=== PATIENT | female | born 1995 | race American Indian/Alaskan Native ===

== ENCOUNTER 2016-08-20 08:11 | Emergency (ER) | payer SELFPAY ==
[2016-08-20 08:20] VITALS: BP 111/66
[2016-08-20 08:37] LABS: Basophils % (Auto) 0.4 % (0.0-1.8); Eosinophils % (Auto) 1.1 % (0.0-4.3); Hematocrit 39.2 % (30.3-42.9); Mean Corpuscular HGB Conc 33 % (30-34); Mean Corpuscular Hemoglobin 28 pg (28-32); Mean Corpuscular Volume 84 fl (79-97); Platelet Count 172 K/mm3 (140-440); Red Blood Count 4.64 M/mm3 (3.65-5.03); Red Cell Distribution Width 13.8 % (13.2-15.2); White Blood Count 4.9 K/mm3 (4.5-11.0)
[2016-08-20 08:52] LABS: Anion Gap 16 mmol/L; BUN/Creatinine Ratio 11.42; Blood Urea Nitrogen 8 mg/dL (7-17); Calcium 8.6 mg/dL (8.4-10.2); Carbon Dioxide 22 mmol/L (22-30); Chloride 105.1 mmol/L (98-107); Glucose 91 mg/dL (65-100); Potassium 4.5 mmol/L (3.6-5.0); Sodium 139 mmol/L (137-145)
[2016-08-20 08:52] LABS: Bilirubin,Urine NEG (Negative); Blood,Urine NEG (Negative); Ketones,Urine NEG (Negative); Leukocyte Esterase,Urine NEG (Negative); Mucus,Urine 2+ /HPF; Nitrite,Urine NEG (Negative); Protein,Urine <15 mg/dL mg/dL (Negative); Urobilinogen,Urine < 2.0 mg/dL (<2.0)
--- NOTE | 2016-08-20 10:12 | Emergency Department Report ---
ED N/V/D HPI - General Chief complaint: Nausea/Vomiting/Diarrhea Stated complaint: NAUSEA Time Seen by Provider: 08/20/16 10:11 Source: patient Mode of arrival: Ambulatory Limitations: No Limitations - Related Data Previous Rx's Medication Instructions Recorded Last Taken Type Promethazine HCl [Promethazine TAB] 12.5 mg PO [id number] PRN #14 tab 08/20/16 Unknown Rx Allergies Allergy/AdvReac Type Severity Reaction Status Date / Time No Known Allergies Allergy Verified 08/20/16 08:20 ED Review of Systems ROS: Stated complaint: NAUSEA Other details as noted in HPI ED Past Medical Hx - Past Medical History Previous Medical History?: No Hx Hypertension: No Hx Congestive Heart Failure: No Hx Diabetes: No Hx Deep Vein Thrombosis: No Hx Renal Disease: No Hx Sickle Cell Disease: No Hx Seizures: No Hx Asthma: No Hx COPD: No Hx HIV: No - Surgical History Past Surgical History?: No - Social History Smoking Status: Never Smoker Substance Use Type: None - Medications Home Medications: Home Medications Medication Instructions Recorded Confirmed Last Taken Type Promethazine HCl [Promethazine TAB] 12.5 mg PO [id number] PRN #14 tab 08/20/16 Unknown Rx ED Physical Exam - General Limitations: No Limitations - Eye Eye exam: Present: normal appearance Pupils: Present: normal accommodation - ENT ENT exam: Present: normal exam - Neck Neck exam: Present: normal inspection - Respiratory Respiratory exam: Present: normal lung sounds bilaterally - Cardiovascular Cardiovascular Exam: Present: regular rate, normal rhythm - GI/Abdominal GI/Abdominal exam: Present: soft - External exam: Present: other (patient refused) ED Course Vital Signs 08/20/16 08:17 Temperature 98.3 F Pulse Rate 75 Respiratory 15 Rate Blood Pressure 111/66 O2 Sat by Pulse 100 Oximetry - Reevaluation(s) Reevaluation #1: 08/20/16 10:39 by m.d at 10:39, patient without distress wants to go home. ED Medical Decision Making - Lab Data Result diagrams: 08/20/16 08:23 08/20/16 08:23 Critical care attestation.: If time is entered above; I have spent that time in minutes in the direct care of this critically ill patient, excluding procedure time. ED Disposition Clinical Impression: Vomiting affecting Disposition: DC-01 TO HOME OR SELFCARE Is pt being admited?: No Does the pt Need Aspirin: No Condition: Stable Prescriptions: Promethazine HCl [Promethazine TAB] 12.5 mg PO [id number] PRN #14 tab PRN Reason: Nausea Referrals: PRIMARY CAREMD [Primary Care Provider] - 3-5 Days ALEJANDRO REYNA MD [Referring] - 3-5 Days Forms: Work/School Release Form(ED) Time of Disposition: 10:48
== END 2016-08-20 11:02 | disposition home or self-care (01) ==
LOC: ED 08:11
DX: O21.9 Vomiting of pregnancy, unspecified (principal); Z3A.00 Weeks of gestation of pregnancy not specified
CPT/HCPCS: 36415; 80048; 81001; 84703; 85025; 99283

== ENCOUNTER 2017-03-31 16:37 | Outpatient (CLI) | payer OTHER ==
[2017-03-31 17:38] VITALS: BP 100/58
[2017-03-31] MEDS ORDERED: LACTATED RINGERS 500 ML IV ONE (18:00)
[2017-03-31 18:58] LABS: Amorphous Crystals,Urine Few; Bacteria,Urine 1+ /HPF (Negative); Bilirubin,Urine NEG (Negative); Blood,Urine NEG (Negative); Color,Urine Yellow (Yellow); Mucus,Urine FEW /HPF; Nitrite,Urine NEG (Negative); Protein,Urine <15 mg/dL mg/dL (Negative); Urobilinogen,Urine < 2.0 mg/dL (<2.0)
== END 2017-03-31 19:45 | disposition home or self-care (01) ==
LOC: TRG 16:37 → LD 17:29 → TRG 19:45
PROVIDERS: ATTEND Obstetrics & Gynecology
DX: O47.03 False labor before 37 completed weeks of gestation, third trimester (principal); Z3A.35 35 weeks gestation of pregnancy
CPT/HCPCS: 59025; 81001

== ENCOUNTER 2018-04-06 10:15 | Emergency (ER) | payer OTHER ==
[2018-04-06] MEDS ORDERED: IBUPROFEN PO ONE (13:54)
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
--- NOTE | 2018-04-06 15:19 | XRay Report ---
RIGHT SHOULDER, 3 VIEWS: HISTORY: right shoulder pain. Normal bone mineralization. No acute osseous injury or joint pathology is detected. The soft tissues are unremarkable. IMPRESSION: Right shoulder within normal limits.
[2018-04-06 15:43] VITALS: BP 105/66
== END 2018-04-06 15:41 | disposition home or self-care (01) ==
LOC: ED 10:15
DX: S46.911A Strain of unspecified muscle, fascia and tendon at shoulder and upper arm level, right arm, initial encounter (principal); Z79.899 Other long term (current) drug therapy; V89.2XXA Person injured in unspecified motor-vehicle accident, traffic, initial encounter; Y93.89 Activity, other specified; Y92.410 Unspecified street and highway as the place of occurrence of the external cause; Y99.8 Other external cause status
CPT/HCPCS: 99283

== ENCOUNTER 2018-09-01 22:53 | Emergency (ER) | payer SELFPAY ==
[2018-09-01 23:32] LABS: Basophils % (Auto) 0.3 % (0.0-1.8); Eosinophils # (Auto) 0.1 K/mm3 (0.0-0.4); Eosinophils % (Auto) 1.7 % (0.0-4.3); Hematocrit 38.4 % (30.3-42.9); Hemoglobin 13.1 gm/dl (10.1-14.3); Lymphocytes # (Auto) 2.1 K/mm3 (1.2-5.4); Lymphocytes % (Auto) 30.5 % (13.4-35.0); Mean Corpuscular HGB Conc 34 % (30-34); Mean Corpuscular Volume 87 fl (79-97); Monocytes # (Auto) 0.5 K/mm3 (0.0-0.8); Monocytes % (Auto) 7.9 % (0.0-7.3); Platelet Count 170 K/mm3 (140-440); Red Blood Count 4.41 M/mm3 (3.65-5.03); Red Cell Distribution Width 13.2 % (13.2-15.2)
--- NOTE | 2018-09-02 00:56 | Emergency Department Report ---
ED Female HPI - General Chief complaint: Urogenital-Female Stated complaint: BLEEDING BIG CLOTS Time Seen by Provider: 09/02/18 00:51 Source: patient Mode of arrival: Ambulatory Limitations: No Limitations - History of Present Illness Initial comments: Patient is a 22-year-old female A0 nexplanon implant x 1 yr presents for vaginal bleeding x 3 days LMP 08/12/2018 other symptsom include cramping , there is no fever no chills no n/v denies hx of fibroids no ovarian cyst. MD Complaint: vaginal bleeding Onset/Timin -: days(s) Radiation: non-radiating Severity: moderate Severity scale (0 -10): 5 Quality: cramping Consistency: constant Improves with: none Worsens with: none Are you Now?: No Last Menstrual Period: 08/12/18 EDC: 05/19/19 Associated Symptoms: vaginal bleeding, abdominal pain - Related Data Sexually active: Yes : 2 Para: 2 A: 0 Previous Rx's Medication Instructions Recorded Last Taken Type Promethazine HCl [Promethazine TAB] 12.5 mg PO [id number] PRN #14 tab 08/20/16 Unknown Rx Cyclobenzaprine [Flexeril] 10 mg PO QHS PRN #10 tablet 04/06/18 Unknown Rx Ibuprofen [Motrin] 600 mg PO Q8H PRN #20 tablet 04/06/18 Unknown Rx Ibuprofen [Motrin 800 MG tab] 800 mg PO Q8HR PRN #30 tablet 09/02/18 Unknown Rx Allergies Allergy/AdvReac Type Severity Reaction Status Date / Time No Known Allergies Allergy Verified 08/20/16 08:20 ED Review of Systems ROS: Stated complaint: BLEEDING BIG CLOTS Other details as noted in HPI Constitutional: denies: chills, fever Eyes: denies: eye pain, eye discharge, vision change ENT: denies: ear pain, throat pain Respiratory: denies: cough, shortness of breath, wheezing Cardiovascular: denies: chest pain, palpitations Endocrine: no symptoms reported Gastrointestinal: abdominal pain. denies: nausea, vomiting, diarrhea, constipation, hematemesis, melena, hematochezia Genitourinary: abnormal menses. denies: urgency, dysuria, frequency, hematuria, discharge, dyspareunia Musculoskeletal: as per HPI Skin: denies: rash, lesions Neurological: denies: headache, weakness, paresthesias Psychiatric: denies: anxiety, depression Hematological/Lymphatic: denies: easy bleeding, easy bruising ED Past Medical Hx - Past Medical History Previous Medical History?: Yes Hx Hypertension: No Hx Congestive Heart Failure: No Hx Diabetes: No Hx Deep Vein Thrombosis: No Hx Renal Disease: No Hx Sickle Cell Disease: No Hx Seizures: No Hx Asthma: No Hx COPD: No Hx HIV: No - Surgical History Past Surgical History?: No - Social History Smoking Status: Never Smoker - Medications Home Medications: Home Medications Medication Instructions Recorded Confirmed Last Taken Type Promethazine HCl [Promethazine TAB] 12.5 mg PO [id number] PRN #14 tab 08/20/16 Unknown Rx Cyclobenzaprine [Flexeril] 10 mg PO QHS PRN #10 tablet 04/06/18 Unknown Rx Ibuprofen [Motrin] 600 mg PO Q8H PRN #20 tablet 04/06/18 Unknown Rx Ibuprofen [Motrin 800 MG tab] 800 mg PO Q8HR PRN #30 tablet 09/02/18 Unknown Rx ED Physical Exam - General Limitations: No Limitations General appearance: alert, in no apparent distress - Head Head exam: Present: atraumatic, normocephalic - Eye Eye exam: Present: normal appearance, PERRL, EOMI Pupils: Present: normal accommodation - ENT ENT exam: Present: normal orophraynx, mucous membranes moist, normal external ear exam - Neck Neck exam: Present: normal inspection, full ROM. Absent: tenderness, meningismus, lymphadenopathy, thyromegaly - Respiratory Respiratory exam: Present: normal lung sounds bilaterally. Absent: respiratory distress, wheezes, stridor, chest wall tenderness - Cardiovascular Cardiovascular Exam: Present: regular rate, normal rhythm, normal heart sounds. Absent: systolic murmur, diastolic murmur, rubs, gallop - GI/Abdominal GI/Abdominal exam: Present: soft, distended, normal bowel sounds. Absent: tenderness, bruit, hernia - Rectal Rectal exam: Present: deferred - Extremities Exam Extremities exam: Present: normal inspection, full ROM, normal capillary refill. Absent: tenderness, pedal edema, joint swelling, calf tenderness - Back Exam Back exam: Present: normal inspection, full ROM. Absent: tenderness, CVA tenderness (R), CVA tenderness (L), muscle spasm, paraspinal tenderness, vertebral tenderness, rash noted - Neurological Exam Neurological exam: Present: alert, oriented X3, CN II-XII intact, normal gait, reflexes normal. Absent: motor sensory deficit - Psychiatric Psychiatric exam: Present: normal affect, normal mood - Skin Skin exam: Present: warm, dry, intact, normal color. Absent: rash ED Course Vital Signs 09/01/18 22:55 Temperature 98 F Pulse Rate 75 Respiratory 18 Rate Blood Pressure 99/53 O2 Sat by Pulse 100 Oximetry ED Medical Decision Making - Lab Data Result diagrams: 09/01/18 23:08 - Radiology Data Radiology results: report reviewed, image reviewed Ordering Physician: MARBELLA TOURE NP Date of Service: 09/02/18 Procedure(s): US pelvic complete Accession Number(s): [id number] cc: MARBELLA TOURE NP ULTRASOUND PELVIS INDICATION: pelvic pain /bleeding. TECHNIQUE: Transabdominal and Transvaginal. Duplex Color Doppler used: Yes. COMPARISON: None available FINDINGS: Uterus: Present. Size: 12.4 x 5.6 x 5.7 cm. Endometrial complex: Thickened measuring 1.8 cm. Mass lesions: None. Additional findings: None. Right Ovary: Size: 3.2 x 1.7 x 2.2 cm Blood flow: Normal. Cyst or mass: None. Left Ovary: Size: 5.4 x 4.1 x 5.6 cm Blood flow: Normal. Cyst or mass: A simple appearing cyst measures 4.2 x 2.9 x 3.6 cm. Urinary Bladder: Normal. Free Fluid: Minimal, likely physiologic. Additional Findings: None. IMPRESSION: 1. Nonspecific endometrial thickening. No additional acute findings. 2. Simple appearing left ovarian cyst as above. No follow-up imaging is indicated at this time. Signer Name: Александр Monk MD Signed: 09/02/2018 4:52 AM Workstation Name: [id number] Transcribed By: [place] Dictated By: Александр Monk MD Electronically Authenticated By: Александр Monk MD Signed Date/Time: 09/02/18451 DD/ 9 TD/TT: - Medical Decision Making This is AUB , hcg is neg, H/H normal. there is no abd tenderness no n/v no fever or chills, plan will follow up with [facility] in 2-3 days return to ed if symptoms worsen, pt verbalized agreement and understanding of discharge plan. Critical care attestation.: If time is entered above; I have spent that time in minutes in the direct care of this critically ill patient, excluding procedure time. ED Disposition Clinical Impression: Abnormal uterine bleeding (AUB) Ovarian cyst Qualifiers: Laterality: left Qualified Code(s): N83.202 - Unspecified ovarian cyst, left side Disposition: TO HOME OR SELFCARE Is pt being admited?: No Does the pt Need Aspirin: No Condition: Stable Instructions: Ovarian Cyst (ED) Prescriptions: Ibuprofen [Motrin 800 MG tab] 800 mg PO Q8HR PRN #30 tablet PRN Reason: pain Referrals: JUAN GONZALEZ MD [Staff Physician] - 3-5 Days Forms: Work/School Release Form(ED) Time of Disposition: 05:07
[2018-09-02 01:09] LABS: Bilirubin,Urine NEG (Negative); Blood,Urine LG (Negative); Color,Urine Yellow (Yellow); Mucus,Urine 1+ /HPF; Urobilinogen,Urine < 2.0 mg/dL (<2.0)
[2018-09-02 01:13] LABS: RBC,Urine > 182.0 /HPF (0.0-6.0)
--- NOTE | 2018-09-02 04:57 | Ultrasound Report ---
ULTRASOUND PELVIS INDICATION: pelvic pain /bleeding. TECHNIQUE: Transabdominal and Transvaginal. Duplex Color Doppler used: Yes. COMPARISON: None available FINDINGS: Uterus: Present. Size: 12.4 x 5.6 x 5.7 cm. Endometrial complex: Thickened measuring 1.8 cm. Mass lesions: None. Additional findings: None. Right Ovary: Size: 3.2 x 1.7 x 2.2 cm Blood flow: Normal. Cyst or mass: None. Left Ovary: Size: 5.4 x 4.1 x 5.6 cm Blood flow: Normal. Cyst or mass: A simple appearing cyst measures 4.2 x 2.9 x 3.6 cm. Urinary Bladder: Normal. Free Fluid: Minimal, likely physiologic. Additional Findings: None. IMPRESSION: 1. Nonspecific endometrial thickening. No additional acute findings. 2. Simple appearing left ovarian cyst as above. No follow-up imaging is indicated at this time. Signer Name: Александр Monk MD Signed: 09/02/2018 4:52 AM Workstation Name: [id number]
[2018-09-02 05:14] VITALS: BP 110/78
== END 2018-09-02 05:13 | disposition home or self-care (01) ==
LOC: ED 22:53
DX: N83.202 Unspecified ovarian cyst, left side (principal); Z79.1 Long term (current) use of non-steroidal anti-inflammatories (NSAID); Z79.899 Other long term (current) drug therapy
CPT/HCPCS: 36415; 76856; 81001; 84702; 84703; 85025; 86900; 86901

== ENCOUNTER 2019-03-26 06:02 | Emergency (ER) | payer MEDICAID ==
[2019-03-26 08:17] VITALS: BP 103/61
--- NOTE | 2019-03-26 09:34 | Emergency Department Report ---
- General Chief Complaint: Sore Throat Stated Complaint: COUGH Time Seen by Provider: 03/26/19 08:03 Source: patient Mode of arrival: Ambulatory Limitations: No Limitations - History of Present Illness MD Complaint: sore throat, rhinorrhea, nasal congestion, sinus pain -: Gradual, days(s) (7) Severity: mild, moderate Quality: burning, dull, aching Consistency: constant Improves With: nothing Worsens With: nothing Associated Symptoms: myalgias, headache, rhinorrhea, nasal congestion, sore throat, cough. denies: shortness of breath, abdominal pain, nausea, vomiting, rash, confusion, right sweats - Related Data Previous Rx's Medication Instructions Recorded Last Taken Type Promethazine HCl [Promethazine TAB] 12.5 mg PO [id number] PRN #14 tab 08/20/16 Unk nown Rx Cyclobenzaprine [Flexeril] 10 mg PO QHS PRN #10 tablet 04/06/18 Unknown Rx Ibuprofen [Motrin] 600 mg PO Q8H PRN #20 tablet 04/06/18 Unknown Rx Ibuprofen [Motrin 800 MG tab] 800 mg PO Q8HR PRN #30 tablet 09/02/18 Unknown Rx Amoxicillin [Amoxicillin TAB] 875 mg PO BID #20 tablet 03/26/19 Unknown Rx predniSONE [Deltasone] 20 mg PO QDAY #7 tab 03/26/19 Unknown Rx Allergies Allergy/AdvReac Type Severity Reaction Status Date / Time No Known Allergies Allergy Verified 08/20/16 08:20 ED Review of Systems ROS: Stated complaint: COUGH Other details as noted in HPI Comment: All other systems reviewed and negative ED Past Medical Hx - Past Medical History Previous Medical History?: No Hx Hypertension: No Hx Congestive Heart Failure: No Hx Diabetes: No Hx Deep Vein Thrombosis: No Hx Renal Disease: No Hx Sickle Cell Disease: No Hx Seizures: No Hx Asthma: No Hx COPD: No Hx HIV: No - Surgical History Past Surgical History?: No - Social History Smoking Status: Never Smoker Substance Use Type: Alcohol - Medications Home Medications: Home Medications Medication Instructions Recorded Confirmed Last Taken Type Promethazine HCl [Promethazine TAB] 12.5 mg PO [id number] PRN #14 tab 08/20/16 Unknown Rx Cyclobenzaprine [Flexeril] 10 mg PO QHS PRN #10 tablet 04/06/18 Unknown Rx Ibuprofen [Motrin] 600 mg PO Q8H PRN #20 tablet 04/06/18 Unknown Rx Ibuprofen [Motrin 800 MG tab] 800 mg PO Q8HR PRN #30 tablet 09/02/18 Unknown Rx Amoxicillin [Amoxicillin TAB] 875 mg PO BID #20 tablet 03/26/19 Unknown Rx predniSONE [Deltasone] 20 mg PO QDAY #7 tab 03/26/19 Unknown Rx ED Physical Exam - General Limitations: No Limitations General appearance: alert, in no apparent distress - Head Head exam: Present: atraumatic, normocephalic - Eye Eye exam: Present: normal appearance - ENT ENT exam: Present: mucous membranes moist, other (Nasal congestion with red swollen turbinates with yellow-green discharge scant bleeding pharynx is erythematous and swollen no exudate) - Neck Neck exam: Present: normal inspection, lymphadenopathy - Respiratory Respiratory exam: Present: normal lung sounds bilaterally. Absent: respiratory distress - Cardiovascular Cardiovascular Exam: Present: regular rate, normal rhythm. Absent: systolic murmur, diastolic murmur, rubs, gallop - GI/Abdominal GI/Abdominal exam: Present: soft, normal bowel sounds - Extremities Exam Extremities exam: Present: normal inspection - Back Exam Back exam: Present: normal inspection - Neurological Exam Neurological exam: Present: alert, oriented X3, CN II-XII intact - Psychiatric Psychiatric exam: Present: normal affect, normal mood - Skin Skin exam: Present: warm, dry, intact, normal color. Absent: rash ED Course Vital Signs 03/26/19 06:11 Temperature 98.7 F Pulse Rate 89 Respiratory 18 Rate Blood Pressure 103/61 O2 Sat by Pulse 99 Oximetry Critical care attestation.: If time is entered above; I have spent that time in minutes in the direct care of this critically ill patient, excluding procedure time. ED Disposition Clinical Impression: Sinusitis, Cephalgia, Pharyngitis Disposition: DC-01 TO HOME OR SELFCARE Is pt being admited?: No Does the pt Need Aspirin: No Condition: Stable Instructions: Sinusitis (ED) Prescriptions: Amoxicillin [Amoxicillin TAB] 875 mg PO BID #20 tablet predniSONE [Deltasone] 20 mg PO QDAY #7 tab Referrals: AIDAN RUSS MD [Staff Physician] - 3-5 Days PRIMARY CARE, [Primary Care Provider] - 3-5 Days
== END 2019-03-26 09:48 | disposition home or self-care (01) ==
LOC: ED 06:02
DX: J32.9 Chronic sinusitis, unspecified (principal); J02.9 Acute pharyngitis, unspecified; R51 Headache; Z79.1 Long term (current) use of non-steroidal anti-inflammatories (NSAID); Z79.2 Long term (current) use of antibiotics; Z79.899 Other long term (current) drug therapy
CPT/HCPCS: 99282

== ENCOUNTER 2020-02-11 10:27 | Emergency (ER) | payer OTHER ==
[2020-02-11 11:11] VITALS: BP 101/61
--- NOTE | 2020-02-11 11:13 | Event Note ---
ED Screening Note Date of service: 02/11/20 Time: 11:12 ED Screening Note: Patient complains of chest and upper back pain starting last night Denies cough or shortness of breath Admits to nausea This initial assessment/diagnostic orders/clinical plan/treatment(s) is/are subject to change based on patients health status, clinical progression and re- assessment by fellow clinical providers in the ED. Further treatment and workup at subsequent clinical providers discretion. Patient/guardian urged not to elope from the ED as their condition may be serious if not clinically assessed and managed. Initial orders include: Labs EKG Chest X
[2020-02-11 12:30] LABS: Basophils % (Auto) 0.5 % (0.0-1.8); Eosinophils % (Auto) 0.7 % (0.0-4.3); Hematocrit 39.3 % (30.3-42.9); Hemoglobin 13.3 gm/dl (10.1-14.3); Lymphocytes # (Auto) 1.7 K/mm3 (1.2-5.4); Lymphocytes % (Auto) 29.8 % (13.4-35.0); Mean Corpuscular HGB Conc 34 % (30-34); Mean Corpuscular Volume 87 fl (79-97); Monocytes # (Auto) 0.4 K/mm3 (0.0-0.8); Monocytes % (Auto) 7.6 % (0.0-7.3); Platelet Count 163 K/mm3 (140-440); Red Blood Count 4.54 M/mm3 (3.65-5.03); Red Cell Distribution Width 13.1 % (13.2-15.2)
[2020-02-11 12:56] LABS: Alanine Aminotransferase 10 units/L (7-56); BUN/Creatinine Ratio 18; Blood Urea Nitrogen 14 mg/dL (7-17); Calcium 9.2 mg/dL (8.4-10.2); Hemolysis Index 4
== END 2020-02-11 12:52 ==
LOC: ED 10:27
DX: R07.89 Other chest pain (principal); M54.6 Pain in thoracic spine; R11.0 Nausea; Z53.21 Procedure and treatment not carried out due to patient leaving prior to being seen by health care provider
CPT/HCPCS: 36415; 80053; 84484; 84703; 85025; 93005

== ENCOUNTER 2020-03-05 07:08 | Emergency (ER) | payer OTHER ==
[2020-03-05 07:21] VITALS: BP 103/60
--- NOTE | 2020-03-05 07:29 | Emergency Department Report ---
ED General Adult HPI - General Chief complaint: Pain General Stated complaint: POSITIVE COVID/BODY ACHES Time Seen by Provider: 03/05/20 07:15 Source: patient Mode of arrival: Ambulatory Limitations: No Limitations - History of Present Illness Initial comments: This is a 24-year-old female nontoxic, well nourished in appearance, no acute signs of distress presents to the ED with c/o of generalized body aches x1 week. Patient stated she had a positive COVID test 10 days ago. Patient otherwise denies any URI symptoms. Denies any cough or shortness of breath. Patient stated only reason she came to the ER because she needs a work excuse. Patient denies taking anything [id number] for pain. Patient denies any recent travels, long car, recent hospital stays. Patient denies any calf pain or calf tenderness. Patient denies any chest pain, short of breath, fever, chills, nausea, vomiting, hemoptysis, numbness, tingling, headache or stiff neck. -: days(s) Severity scale (0 -10): 3 Quality: aching Consistency: constant Improves with: none Worsens with: none Associated Symptoms: denies other symptoms. denies: confusion, cough, diaphoresis, fever/chills, headaches, loss of appetite, malaise, nausea/vomiting, rash, seizure, shortness of breath, syncope, weakness Treatments Prior to Arrival: none - Related Data Previous Rx's Medication Instructions Recorded Last Taken Type Promethazine HCl [Promethazine TAB] 12.5 mg PO [id number] PRN #14 tab 08/20/16 Unknown Rx Cyclobenzaprine [Flexeril] 10 mg PO QHS PRN #10 tablet 04/06/18 Unknown Rx Ibuprofen [Motrin] 600 mg PO Q8H PRN #20 tablet 04/06/18 Unknown Rx Ibuprofen [Motrin 800 MG tab] 800 mg PO Q8HR PRN #30 tablet 09/02/18 Unknown Rx Amoxicillin [Amoxicillin TAB] 875 mg PO BID #20 tablet 03/26/19 Unknown Rx predniSONE [Deltasone] 20 mg PO QDAY #7 tab 03/26/19 Unknown Rx cephALEXin [Keflex] 500 mg PO Q8HR #30 cap 10/26/19 Unknown Rx Allergies Allergy/AdvReac Type Severity Reaction Status Date / Time No Known Allergies Allergy Verified 08/20/16 08:20 ED Review of Systems ROS: Stated complaint: POSITIVE COVID/BODY ACHES Other details as noted in HPI Comment: All other systems reviewed and negative Constitutional: denies: chills, fever Eyes: denies: eye pain, eye discharge, vision change ENT: denies: ear pain, throat pain Respiratory: denies: cough, shortness of breath, wheezing Cardiovascular: denies: chest pain, palpitations Endocrine: no symptoms reported Gastrointestinal: denies: abdominal pain, nausea, diarrhea Genitourinary: denies: urgency, dysuria, discharge Musculoskeletal: denies: back pain, joint swelling, arthralgia Skin: denies: rash, lesions Neurological: denies: headache, weakness, paresthesias Psychiatric: denies: anxiety, depression Hematological/Lymphatic: denies: easy bleeding, easy bruising ED Past Medical Hx - Past Medical History Previous Medical History?: No Hx Hypertension: No Hx Congestive Heart Failure: No Hx Diabetes: No Hx Deep Vein Thrombosis: No Hx Renal Disease: No Hx Sickle Cell Disease: No Hx Seizures: No Hx Asthma: No Hx COPD: No Hx HIV: No - Social History Smoking Status: Never Smoker Substance Use Type: None - Medications Home Medications: Home Medications Medication Instructions Recorded Confirmed Last Taken Type Promethazine HCl [Promethazine TAB] 12.5 mg PO [id number] PRN #14 tab 08/20/16 Unknown Rx Cyclobenzaprine [Flexeril] 10 mg PO QHS PRN #10 tablet 04/06/18 Unknown Rx Ibuprofen [Motrin] 600 mg PO Q8H PRN #20 tablet 04/06/18 Unknown Rx Ibuprofen [Motrin 800 MG tab] 800 mg PO Q8HR PRN #30 tablet 09/02/18 Unknown Rx Amoxicillin [Amoxicillin TAB] 875 mg PO BID #20 tablet 03/26/19 Unknown Rx predniSONE [Deltasone] 20 mg PO QDAY #7 tab 03/26/19 Unknown Rx cephALEXin [Keflex] 500 mg PO Q8HR #30 cap 10/26/19 Unknown Rx ED Physical Exam - General Limitations: No Limitations General appearance: alert, in no apparent distress - Head Head exam: Present: atraumatic, normocephalic - Eye Eye exam: Present: normal appearance - Neck Neck exam: Present: normal inspection, full ROM. Absent: tenderness, meningismus, lymphadenopathy - Respiratory Respiratory exam: Present: normal lung sounds bilaterally. Absent: respiratory distress, wheezes, rales, rhonchi, stridor, chest wall tenderness, accessory muscle use, decreased breath sounds, prolonged expiratory - Cardiovascular Cardiovascular Exam: Present: regular rate, normal rhythm, normal heart sounds. Absent: irregular rhythm, systolic murmur, diastolic murmur, rubs, gallop - GI/Abdominal GI/Abdominal exam: Present: soft. Absent: distended, tenderness - Extremities Exam Extremities exam: Present: normal inspection, full ROM - Back Exam Back exam: Present: full ROM - Neurological Exam Neurological exam: Present: alert, oriented X3, normal gait - Psychiatric Psychiatric exam: Present: normal affect, normal mood - Skin Skin exam: Present: warm, dry, intact, normal color. Absent: rash ED Course Vital Signs 03/05/20 07:21 Temperature 98.0 F Pulse Rate 103 H Respiratory 18 Rate Blood Pressure 103/60 [Right] O2 Sat by Pulse 100 Oximetry - Reevaluation(s) Reevaluation #1: 03/05/20 07:30 Patient is speaking in full sentences with no signs of distress noted. ED Medical Decision Making - Medical Decision Making This is a 24-year-old female that presents with Covid with body aches. Patient is stable and was examined by me. Exam is unremarkable. Vital signs are stable. Patient was instructed to increase hydration, rest and take Tylenol for fever episodes. Vitals stable. Patient is nonfebrile and normal heart rate. Patient was instructed Follow-up with a primary care doctor in 3-5 days or if symptoms worsen and continue return to emergency room as soon as possible. At time time of discharge, the patient does not seem toxic or ill in appearance. No acute signs of distress noted. Patient agrees to discharge treatment plan of care. No further questions noted by the patient.nt. Critical care attestation.: If time is entered above; I have spent that time in minutes in the direct care of this critically ill patient, excluding procedure time. ED Disposition Clinical Impression: Body aches Disposition: MED SCREENING EXAM-LEFT Is pt being admited?: No Does the pt Need Aspirin: No Condition: Stable Instructions: COVID-19 Frequently Asked Questions, COVID-19 Additional Instructions: Follow-up with a primary care doctor in 3-5 days or if symptoms worsen and continue return to emergency room as soon as possible. You must follow your work guidelines for a possible repeat Covid test before returning to work. Referrals: PRIMARY CARE, [Referring] - 3-5 Days AIDAN RUSS MD [Staff Physician] - 3-5 Days Forms: Work/School Release Form(ED) Time of Disposition: 07:31
== END 2020-03-05 07:50 | disposition left against medical advice (07) ==
LOC: ED 07:08
DX: M79.10 Myalgia, unspecified site (principal); Z53.21 Procedure and treatment not carried out due to patient leaving prior to being seen by health care provider

== ENCOUNTER 2020-05-03 08:09 | Emergency (ER) | payer OTHER ==
[2020-05-03 09:26] LABS: Basophils % (Auto) 0.4 % (0.0-1.8); Hematocrit 38.6 % (30.3-42.9); Hemoglobin 13.1 gm/dl (10.1-14.3); Lymphocytes # (Auto) 1.3 K/mm3 (1.2-5.4); Lymphocytes % (Auto) 36.1 % (13.4-35.0); Mean Corpuscular HGB Conc 34 % (30-34); Mean Corpuscular Volume 86 fl (79-97); Monocytes # (Auto) 0.4 K/mm3 (0.0-0.8); Platelet Count 190 K/mm3 (140-440); Red Blood Count 4.48 M/mm3 (3.65-5.03); Red Cell Distribution Width 13.7 % (13.2-15.2)
[2020-05-03 09:41] LABS: Alanine Aminotransferase 7 units/L (7-56); Albumin 3.8 g/dL (3.9-5); Blood Urea Nitrogen 8 mg/dL (7-17); Hemolysis Index 2
[2020-05-03 09:52] LABS: BUN/Creatinine Ratio 11
--- NOTE | 2020-05-03 10:08 | Emergency Department Report ---
ED Abdominal Pain HPI - General Chief Complaint: Abdominal Pain Stated Complaint: ABD PAIN PUI?: No Source: patient Mode of arrival: Wheelchair Limitations: No Limitations - History of Present Illness Initial Comments: There is a pleasant 24-year-old female who presents to the emergency department chief complaint of suprapubic abdominal pain that started suddenly around 6 AM this morning. She describes this as cramping and rates it as a 9 out of 10 in severity. She denies any known past medical history, current medication use or known allergies to medications. She denies any previous surgeries. She states her last menstrual cycle was last year which is abnormal for her but she does not think she is currently . She denies taking any test. She denies any associated fever, chills, night sweats, headache, dizziness, blurry vision, nausea, vomiting, diarrhea, chest pain, shortness of breath, weakness or any other associated symptoms. - Related Data Home Medications Medication Instructions Recorded Confirmed Last Taken No Known Home Medications [No 05/03/20 05/03/20 Unknown Reported Home Medications] Allergies Allergy/AdvReac Type Severity Reaction Status Date / Time No Known Allergies Allergy Verified 05/03/20 08:24 ED Review of Systems ROS: Stated complaint: ABD PAIN Other details as noted in HPI Comment: All other systems reviewed and negative Constitutional: denies: chills, fever Eyes: denies: eye pain, eye discharge, vision change ENT: denies: ear pain, throat pain Respiratory: denies: cough, shortness of breath, wheezing Cardiovascular: denies: chest pain, palpitations Endocrine: no symptoms reported Gastrointestinal: as per HPI, abdominal pain. denies: nausea, diarrhea Genitourinary: denies: urgency, dysuria, discharge Musculoskeletal: denies: back pain, joint swelling, arthralgia Skin: denies: rash, lesions Neurological: denies: headache, weakness, paresthesias Psychiatric: denies: anxiety, depression Hematological/Lymphatic: denies: easy bleeding, easy bruising ED Past Medical Hx - Past Medical History Hx Hypertension: No Hx Congestive Heart Failure: No Hx Diabetes: No Hx Deep Vein Thrombosis: No Hx Renal Disease: No Hx Sickle Cell Disease: No Hx Seizures: No Hx Asthma: No Hx COPD: No Hx HIV: No - Social History Smoking Status: Never Smoker Substance Use Type: None - Medications Home Medications: Home Medications Medication Instructions Recorded Confirmed Last Taken Type No Known Home Medications [No 05/03/20 05/03/20 Unknown History Reported Home Medications] ED Physical Exam - General Limitations: No Limitations General appearance: alert, in no apparent distress - Head Head exam: Present: atraumatic, normocephalic - Eye Eye exam: Present: normal appearance, PERRL Pupils: Present: normal accommodation - ENT ENT exam: Present: normal exam, normal orophraynx, mucous membranes moist - Neck Neck exam: Present: normal inspection, full ROM. Absent: tenderness, meningismus - Respiratory Respiratory exam: Present: normal lung sounds bilaterally. Absent: respiratory distress, wheezes, rales, rhonchi, stridor - Cardiovascular Cardiovascular Exam: Present: regular rate, normal rhythm, normal heart sounds. Absent: systolic murmur, diastolic murmur, rubs, gallop - GI/Abdominal GI/Abdominal exam: Present: soft, tenderness, normal bowel sounds, other (Tenderness to palpation of the suprapubic abdomen, no rebound or guarding, negative McBurney's point tenderness, negative Courtney sign,). Absent: di stended, guarding, rebound, rigid - Extremities Exam Extremities exam: Present: normal inspection, full ROM, normal capillary refill. Absent: tenderness, calf tenderness - Back Exam Back exam: Present: normal inspection, full ROM. Absent: tenderness, CVA tenderness (R), CVA tenderness (L) - Neurological Exam Neurological exam: Present: alert, oriented X3, normal gait - Psychiatric Psychiatric exam: Present: normal affect, normal mood - Skin Skin exam: Present: warm, dry, intact, normal color. Absent: rash ED Course - Reevaluation(s) Reevaluation #1: 05/03/20 11:10 I discussed with the patient that I could not find the etiology of her abdominal pain with her urine being normal and her labs being normal and recommended we do a pelvic exam to rule out PID, TOA, cervicitis or any other possibility of the pelvic issue that could be causing her pain. She states she has a doctor's appointment tomorrow and would prefer to go there for this exam. She understood that without this exam I could not rule out any pelvic etiology of her pain. She states she really just needs a clearance for her job and a work note. ED Medical Decision Making - Lab Data Result diagrams: 05/03/20 08:50 05/03/20 08:50 Lab Results 05/03/20 05/03/20 05/03/20 Range/Units 08:50 08:50 Unknown WBC 3.7 L (4.5-11.0) K/mm3 RBC 4.48 (3.65-5.03) M/mm3 Hgb 13.1 (10.1-14.3) gm/dl Hct 38.6 (30.3-42.9) % MCV 86 (79-97) fl MCH 29 (28-32) pg MCHC 34 (30-34) % RDW 13.7 (13.2-15.2) % Plt Count 190 (140-440) K/mm3 Lymph % (Auto) 36.1 H (13.4-35.0) % [place] % (Auto) 12.0 H (0.0-7.3) % Eos % (Auto) 1.0 (0.0-4.3) % Baso % (Auto) 0.4 (0.0-1.8) % Lymph # (Auto) 1.3 (1.2-5.4) K/mm3 [place] # (Auto) 0.4 (0.0-0.8) K/mm3 Eos # (Auto) 0.0 (0.0-0.4) K/mm3 Baso # (Auto) 0.0 (0.0-0.1) K/mm3 Seg Neutrophils % 50.5 (40.0-70.0) % Seg Neutrophils # 1.9 (1.8-7.7) K/mm3 Sodium 135 L (137-145) mmol/L Potassium 4.4 (3.6-5.0) mmol/L Chloride 102.1 (98-107) mmol/L Carbon Dioxide 29 (22-30) mmol/L Anion Gap 8 mmol/L BUN 8 (7-17) mg/dL Creatinine 0.7 (0.6-1.2) mg/dL Estimated GFR > 60 ml/min BUN/Creatinine Ratio 11 % Glucose 92 (65-100) mg/dL Calcium 9.0 (8.4-10.2) mg/dL Total Bilirubin 0.50 (0.1-1.2) mg/dL AST 10 (5-40) units/L ALT 7 (7-56) units/L Alkaline Phosphatase 42 (35-129) units/L Total Protein 6.7 (6.3-8.2) g/dL Albumin 3.8 L (3.9-5) g/dL Albumin/Globulin Ratio 1.3 % Urine Color Straw (Yellow) Urine Turbidity Clear (Clear) Urine pH 7.0 (5.0-7.0) Ur Specific [place] 1.006 (1.003-1.030) Urine Protein <15 mg/dl (Negative) mg/dL Urine Glucose (UA) Neg (Negative) mg/dL Urine Ketones Neg (Negative) mg/dL Urine Blood Neg (Negative) Urine Nitrite Neg (Negative) Urine Bilirubin Neg (Negative) Urine Urobilinogen < 2.0 (<2.0) mg/dL Ur Leukocyte Esterase Neg (Negative) Urine WBC (Auto) 1.0 (0.0-6.0) /HPF Urine RBC (Auto) 1.0 (0.0-6.0) /HPF U Epithel Cells (Auto) 1.0 (0-13.0) /HPF - Medical Decision Making Patient nontoxic in no acute distress. patient declined pelvic exam. test had not resulted and patient was found to eloped from the room. - Differential Diagnosis Ectopic , PID, cervicitis, UTI Critical care attestation.: If time is entered above; I have spent that time in minutes in the direct care of this critically ill patient, excluding procedure time. ED Disposition Clinical Impression: Pelvic pain Disposition: Z-07 ELOPED Is pt being admited?: No Condition: Stable Instructions: Abdominal Pain (ED), Pelvic Pain, Female Referrals: PRIMARY CARE, [Primary Care Provider] - 3-5 Days Time of Disposition: 11:26
[2020-05-03 10:46] LABS: Bilirubin,Urine NEG (Negative); Blood,Urine NEG (Negative); Color,Urine Straw (Yellow); Protein,Urine <15 mg/dL mg/dL (Negative); Urobilinogen,Urine < 2.0 mg/dL (<2.0)
[2020-05-03 11:37] LABS: HCG Qualitative,Urine Negative (Negative)
[2020-05-03 15:47] VITALS: BP 99/58
== END 2020-05-03 11:33 | disposition left against medical advice (07) ==
LOC: ED 08:09
DX: R10.2 Pelvic and perineal pain (principal)
CPT/HCPCS: 36415; 80053; 81001; 81025; 85025

== ENCOUNTER 2020-08-24 14:24 | Emergency (ER) | payer OTHER ==
[2020-08-24 14:33] VITALS: BP 101/55
== END 2020-08-24 14:35 | disposition left against medical advice (07) ==
LOC: ED 14:24
DX: Z53.21 Procedure and treatment not carried out due to patient leaving prior to being seen by health care provider (principal)

== ENCOUNTER 2020-08-25 00:24 | Emergency (ER) | payer OTHER ==
[2020-08-25 02:36] LABS: Basophils % (Auto) 0.2 % (0.0-1.8); Eosinophils # (Auto) 0.1 K/mm3 (0.0-0.4); Eosinophils % (Auto) 0.8 % (0.0-4.3); Hematocrit 36.7 % (30.3-42.9); Hemoglobin 12.7 gm/dl (10.1-14.3); Lymphocytes # (Auto) 1.9 K/mm3 (1.2-5.4); Lymphocytes % (Auto) 24.3 % (13.4-35.0); Mean Corpuscular HGB Conc 35 % (30-34); Mean Corpuscular Volume 86 fl (79-97); Monocytes # (Auto) 0.7 K/mm3 (0.0-0.8); Monocytes % (Auto) 9.2 % (0.0-7.3); Platelet Count 191 K/mm3 (140-440); Red Blood Count 4.26 M/mm3 (3.65-5.03); Red Cell Distribution Width 13.9 % (13.2-15.2)
[2020-08-25 02:45] LABS: Alanine Aminotransferase 14 units/L (7-56); Albumin 3.7 g/dL (3.9-5); Blood Urea Nitrogen 8 mg/dL (7-17); Calcium 8.9 mg/dL (8.4-10.2); Hemolysis Index 2
--- NOTE | 2020-08-25 02:49 | Ultrasound Report ---
ULTRASOUND OBSTETRIC INDICATION / CLINICAL INFORMATION: leaking fluid. Clinical Gestational Age (GA) in weeks, days: 15, 4 TECHNIQUE: Transabdominal. COMPARISON: None available. FINDINGS: Single intrauterine . Biparietal Diameter = 3.13 cm = 15, 6 weeks, days Head Circumference = 11.77 cm = 15, 6 weeks, days Abdominal Circumference = 9.11 cm = 15, 2 weeks, days Femur Length = 1.75 cm = 15, 1 weeks, days Average Ultrasound Age (AUA) = 15, 4 weeks, days Heart Rate: 141 beats per minute. Position: Variable Amniotic Fluid Volume: normal IMPRESSION: 1. Single, living intrauterine with estimated sonographic age of 15, 4 weeks, days. 2. No significant sonographic abnormality. Signer Name: Elmo Bean MD Signed: 08/25/2020 2:44 AM Workstation Name: [id number]
[2020-08-25 02:57] LABS: BUN/Creatinine Ratio 13
--- NOTE | 2020-08-25 06:16 | Emergency Department Report ---
ED Female HPI - General Chief complaint: Abdominal Pain Stated complaint: VAGINAL BLEEDING Time Seen by Provider: 08/25/20 06:06 Source: patient Mode of arrival: Ambulatory Limitations: No Limitations - History of Present Illness Initial comments: chief complaint: "I was leaking clear fluid" HPI: This is a 24-year-old who is 16 weeks who presents with leaking clear for and crampy pelvic pain. Tylenol resolve the pain. Gradual o nset this afternoon. Patient denies vomiting, fever, vaginal bleeding. Her last visit occurred 1 to 2 weeks ago. MD Complaint: vaginal discharge (Clear liquid leaking) -: Gradual Severity: mild Severity scale (0 -10): 0 (0 pain now mild crampy in nature) Quality: cramping Consistency: now resolved Improves with: none Worsens with: none Are you Now?: Yes Associated Symptoms: denies other symptoms - Related Data Home Medications Medication Instructions Recorded Confirmed Last Taken No Known Home Medications [No 05/03/20 05/03/20 Unknown Reported Home Medications] Allergies Allergy/AdvReac Type Severity Reaction Status Date / Time No Known Allergies Allergy Verified 05/03/20 08:24 ED Review of Systems ROS: Stated complaint: VAGINAL BLEEDING Other details as noted in HPI Comment: All other systems reviewed and negative Constitutional: denies: fever, malaise Respiratory: denies: cough, shortness of breath Gastrointestinal: abdominal pain ED Past Medical Hx - Past Medical History Previous Medical History?: Yes Hx Hypertension: No Hx Congestive Heart Failure: No Hx Diabetes: No Hx Deep Vein Thrombosis: No Hx Renal Disease: No Hx Sickle Cell Disease: No Hx Seizures: No Hx Asthma: No Hx COPD: No Hx HIV: No - Surgical History Past Surgical History?: No - Social History Smoking Status: Never Smoker Substance Use Type: None - Medications Home Medications: Home Medications Medication Instructions Recorded Confirmed Last Taken Type No Known Home Medications [No 05/03/20 05/03/20 Unknown History Reported Home Medications] ED Physical Exam - General Limitations: No Limitations General appearance: alert, in no apparent distress - Head Head exam: Present: atraumatic, normocephalic - Eye Eye exam: Present: normal appearance - ENT ENT exam: Present: mucous membranes moist - Neck Neck exam: Present: normal inspection, full ROM - Respiratory Respiratory exam: Present: normal lung sounds bilaterally. Absent: respiratory distress, wheezes, rales, rhonchi - Cardiovascular Cardiovascular Exam: Present: regular rate, normal rhythm, normal heart sounds. Absent: systolic murmur, diastolic murmur, rubs, gallop - GI/Abdominal GI/Abdominal exam: Present: soft, normal bowel sounds. Absent: distended, tenderness, guarding, rebound - Extremities Exam Extremities exam: Present: normal inspection - Neurological Exam Neurological exam: Present: alert, oriented X3 - Psychiatric Psychiatric exam: Present: normal affect, normal mood - Skin Skin exam: Present: warm, dry, intact, normal color. Absent: rash ED Course Vital Signs 08/25/20 01:42 Temperature 98.7 F Pulse Rate 83 Respiratory 12 Rate Blood Pressure 104/53 O2 Sat by Pulse 100 Oximetry ED Medical Decision Making - Lab Data Result diagrams: 08/25/20 01:52 08/25/20 01:52 Laboratory Results - last 24 hr 08/25/20 08/25/20 08/25/20 01:52 01:52 01:52 WBC 7.8 RBC 4.26 Hgb 12.7 Hct 36.7 MCV 86 MCH 30 MCHC 35 H RDW 13.9 Plt Count 191 Lymph % (Auto) 24.3 [place] % (Auto) 9.2 H Eos % (Auto) 0.8 Baso % (Auto) 0.2 Lymph # (Auto) 1.9 [place] # (Auto) 0.7 Eos # (Auto) 0.1 Baso # (Auto) 0.0 Seg Neutrophils % 65.5 Seg Neutrophils # 5.1 Sodium 137 Potassium 4.0 Chloride 104.6 Carbon Dioxide 23 Anion Gap 13 BUN 8 Creatinine 0.6 Estimated GFR > 60 BUN/Creatinine Ratio 13 Glucose 80 Calcium 8.9 Total Bilirubin 0.20 AST 15 ALT 14 Alkaline Phosphatase 43 Total Protein 7.0 Albumin 3.7 L Albumin/Globulin Ratio 1.1 HCG, Quant 16349 H - Radiology Data Radiology results: report reviewed Ultrasound radiology impression: cain, living IUP with sonographic age 15 weeks 4 days - Medical Decision Making Threatened miscarriage: O+ blood type according to EMR. Ultrasound revealed IUP Critical care attestation.: If time is entered above; I have spent that time in minutes in the direct care of this critically ill patient, excluding procedure time. ED Disposition Clinical Impression: Threatened miscarriage Disposition: DC- TO HOME OR SELFCARE Is pt being admited?: No Does the pt Need Aspirin: No Condition: Stable Instructions: Abdominal Pain (ED), Threatened Miscarriage
[2020-08-25 06:42] VITALS: BP 104/74
== END 2020-08-25 06:40 | disposition home or self-care (01) ==
LOC: ED 00:24
DX: O20.0 Threatened abortion (principal); Z3A.16 16 weeks gestation of pregnancy
CPT/HCPCS: 36415; 76805; 80053; 84702; 85025

== ENCOUNTER 2020-11-02 05:59 | Outpatient (CLI) | payer OTHER ==
[2020-11-02 06:47] VITALS: BP 90/55
[2020-11-02] MEDS ORDERED: LACTATED RINGERS 1,000 ML IV ONE (06:56)
[2020-11-02 07:33] LABS: Bacteria,Urine 1+ /HPF (Negative); Bilirubin,Urine NEG (Negative); Blood,Urine NEG (Negative); Color,Urine Yellow (Yellow); Mucus,Urine 3+ /HPF; Urobilinogen,Urine < 2.0 mg/dL (<2.0)
--- NOTE | 2020-11-02 08:15 | Progress Note ---
Subjective - Subjective Date of service: 11/02/20 Interval history: Patient with trauma to left flank. no VB, no LOF, +ve GFM plan of care: US/BPP, NST, monitoring for one hour Maternal/ status reassuring overall Boris Cooper MD Objective - Vital Signs Vital Signs: Vital Signs - 12hr 11/02/20 11/02/20 11/02/20 06:45 06:46 06:50 Temperature 98.6 F Pulse Rate 76 85 82 Respiratory 16 Rate Blood Pressure 90/55 Blood Pressure 90/55 [Left] O2 Sat by Pulse 99 98 99 Oximetry 11/02/20 11/02/20 11/02/20 06:55 07:00 07:05 Temperature Pulse Rate 81 89 84 Respiratory Rate Blood Pressure Blood Pressure [Left] O2 Sat by Pulse 98 97 97 Oximetry 11/02/20 11/02/20 11/02/20 07:10 07:15 07:20 Temperature Pulse Rate 86 84 83 Respiratory Rate Blood Pressure Blood Pressure [Left] O2 Sat by Pulse 98 98 98 Oximetry 11/02/20 11/02/20 11/02/20 07:25 07:30 07:35 Temperature Pulse Rate 93 H 83 83 Respiratory Rate Blood Pressure Blood Pressure [Left] O2 Sat by Pulse 97 97 96 Oximetry 11/02/20 11/02/20 11/02/20 07:40 07:45 07:50 Temperature Pulse Rate 88 83 77 Respiratory Rate Blood Pressure Blood Pressure [Left] O2 Sat by Pulse 96 96 97 Oximetry 11/02/20 11/02/20 11/02/20 07:55 08:00 08:05 Temperature Pulse Rate 77 80 80 Respiratory Rate Blood Pressure Blood Pressure [Left] O2 Sat by Pulse 97 97 97 Oximetry 11/02/20 08:10 Temperature Pulse Rate 85 Respiratory Rate Blood Pressure Blood Pressure [Left] O2 Sat by Pulse 99 Oximetry - Labs Labs: Abnormal Labs 11/02/20 07:00 Urine WBC (Auto) 87.0 H U Epithel Cells (Auto) 20.0 H Laboratory Results - last 24 hr 11/02/20 07:00 Urine Color Yellow Urine Turbidity Slightly-cloudy Urine pH 6.0 Ur Specific [place] 1.018 Urine Protein 30 mg/dl Urine Glucose (UA) Neg Urine Ketones Neg Urine Blood Neg Urine Nitrite Neg Urine Bilirubin Neg Urine Urobilinogen < 2.0 Ur Leukocyte Esterase Lg Urine WBC (Auto) 87.0 H Urine RBC (Auto) 31.0 U Epithel Cells (Auto) 20.0 H Urine Bacteria (Auto) 1+ Urine Mucus 3+
--- NOTE | 2020-11-02 09:35 | Ultrasound Report ---
ULTRASOUND OBSTETRIC FOLLOW UP ULTRASOUND BIOPHYSICAL PROFILE INDICATION / CLINICAL INFORMATION: Evaluate wellbeing after fall. Clinical Gestational Age (GA) in weeks.days: 25.4 TECHNIQUE: Transabdominal. COMPARISON: OB ultrasound dated 08/25/2020. FINDINGS: NUMBER: Single PRESENTATION: transverse PLACENTA: posterior and free of the os. MATERNAL ADNEXA: No significant abnormality. AMNIOTIC FLUID VOLUME: normal AMNIOTIC FLUID INDEX (JOSE G) in cm (if measured): Not measured MEASUREMENTS: - Biparietal Diameter = 5.74 cm = 23.4 weeks.days - Head Circumference = 21.01 cm = 23.1 weeks.days - Abdominal Circumference = 21.07 cm = 25.4 weeks.days - Femur Length = 4.65 cm = 25.3 weeks.days - Estimated Weight (in grams, if calculated): 780 - Heart Rate (beats per minute): 130 ADDITIONAL FINDINGS: None. PERCENTILE ESTIMATED WEIGHT (if calculated): 24 AVERAGE ULTRASOUND AGE (AUA) in weeks.days = 24.3 BREATHING MOVEMENT = 2 GROSS BODY MOVEMENT = 2 TONE = 2 QUALITATIVE AMNIOTIC FLUID VOLUME = 2 TOTAL BIOPHYSICAL SCORE = 8/8 IMPRESSION: 1. Single intrauterine with AUA of 24.3 weeks.days 2. Biophysical profile score of 8/8. 3. No significant abnormalities. Signer Name: Александр Monk MD Signed: 11/02/2020 9:30 AM Workstation Name: [id number]
== END 2020-11-02 09:40 | disposition home or self-care (01) ==
LOC: EEVIPCON 05:59 → TRG 05:59 → APU 06:00 → TRG 09:40
PROVIDERS: ATTEND Obstetrics & Gynecology
DX: Z34.92 Encounter for supervision of normal pregnancy, unspecified, second trimester (principal); Z3A.25 25 weeks gestation of pregnancy
CPT/HCPCS: 76816; 76819; 81001; 87086

== ENCOUNTER 2020-11-20 00:19 | Outpatient (CLI) | payer OTHER ==
[2020-11-20 00:41] VITALS: BP 104/59
[2020-11-20] MEDS ORDERED: LACTATED RINGERS 1,000 ML IV ONE ×2 (00:56→02:59)
[2020-11-20 01:16] LABS: Bilirubin,Urine NEG (Negative); Blood,Urine NEG (Negative); Color,Urine Yellow (Yellow); Mucus,Urine FEW /HPF; Protein,Urine <15 mg/dL mg/dL (Negative)
[2020-11-20 01:23] LABS: Amphetamine Screen,Urine PRESUMPTIVE NEGATIVE; Benzodiazepines Screen,Urine PRESUMPTIVE NEGATIVE; Cannabinoid Screen,Urine PRESUMPTIVE NEGATIVE; Cocaine Screen,Urine PRESUMPTIVE NEGATIVE; Methadone Screen,Urine PRESUMPTIVE NEGATIVE; Opiate Screen,Urine PRESUMPTIVE NEGATIVE
[2020-11-20] MEDS ORDERED: ACETAMINOPHEN 500 MG TAB PO ONE (01:53)
--- NOTE | 2020-11-20 02:45 | Ultrasound Report ---
ULTRASOUND OBSTETRIC LIMITED ULTRASOUND BIOPHYSICAL PROFILE INDICATION / CLINICAL INFORMATION: WELLBEING. COMPARISON: None available. FINDINGS: BREATHING MOVEMENT = 2 GROSS BODY MOVEMENT = 2 TONE = 2 QUALITATIVE AMNIOTIC FLUID VOLUME = 2 TOTAL BIOPHYSICAL SCORE = 8/8 AMNIOTIC FLUID INDEX (cm) = 12.4 PRESENTATION: Cephalic. HEART RATE (beats per minute): 133 ADDITIONAL FINDINGS: Placenta posterior fundal grade 1 IMPRESSION: 1. Biophysical Score = 8/8 Signer Name: Favio Flaherty MD Signed: 11/20/2020 2:41 AM Workstation Name: [id number]
[2020-11-20 02:54] LABS: Hematocrit 29.7 % (30.3-42.9); Hemoglobin 10.5 gm/dl (10.1-14.3); Mean Corpuscular HGB Conc 35 % (30-34); Mean Corpuscular Volume 90 fl (79-97); Platelet Count 159 K/mm3 (140-440); Red Blood Count 3.32 M/mm3 (3.65-5.03); Red Cell Distribution Width 13.2 % (13.2-15.2)
[2020-11-20 03:14] LABS: INR 0.98 (0.87-1.13)
[2020-11-20 03:15] LABS: Partial Thromboplastin Time 28.9 Sec. (24.2-36.6)
[2020-11-20 04:01] LABS: Total Cells Counted 100
[2020-11-20 04:03] LABS: Platelet Estimate Consistent w Auto; RBC Morphology Normal
== END 2020-11-20 04:48 | disposition home or self-care (01) ==
LOC: TRG 00:19 → APU 00:20 → TRG 04:48
PROVIDERS: ATTEND Obstetrics & Gynecology
DX: O26.893 Other specified pregnancy related conditions, third trimester (principal); R10.9 Unspecified abdominal pain; Z3A.28 28 weeks gestation of pregnancy
CPT/HCPCS: 36415; 59025; 76815; 76819; 80307; 81001; 85025; 85379; 85384; 85460; 85610; 85730; 86850; 86900; 86901; 87086; 96360; 96361; J7120; 85007

== ENCOUNTER 2020-12-01 04:19 | Outpatient (CLI) | payer OTHER ==
[2020-12-01 04:53] VITALS: BP 96/56
[2020-12-01 05:36] LABS: Amphetamine Screen,Urine PRESUMPTIVE NEGATIVE; Benzodiazepines Screen,Urine PRESUMPTIVE NEGATIVE; Cannabinoid Screen,Urine PRESUMPTIVE NEGATIVE; Cocaine Screen,Urine PRESUMPTIVE NEGATIVE; Methadone Screen,Urine PRESUMPTIVE NEGATIVE; Opiate Screen,Urine PRESUMPTIVE NEGATIVE
[2020-12-01 06:10] LABS: Bacteria,Urine 2+ /HPF (Negative); Bilirubin,Urine NEG (Negative); Blood,Urine NEG (Negative); Color,Urine Yellow (Yellow); Mucus,Urine FEW /HPF; Protein,Urine <15 mg/dL mg/dL (Negative); Urobilinogen,Urine < 2.0 mg/dL (<2.0)
[2020-12-01] MEDS ORDERED: LIDOCAINE-MPF (1%) 10 MG/1 ML VIAL 5 ML INFILTRATI ONE (06:43)
--- NOTE | 2020-12-01 07:27 | Ultrasound Report ---
OB ultrasound Biophysical profile INDICATION: well-being FINDINGS: Amniotic fluid index measures 13.6. Single live intrauterine in cephalic position . heart rate 132. Biophysical profile 8 out of 8. IMPRESSION: Biophysical profile 8 out of 8. heart rate 132 Signer Name: Jhonatan Garcia MD Signed: 12/01/2020 7:23 AM Workstation Name: [id number]
[2020-12-01] MEDS ORDERED: LACTATED RINGERS 500 ML IV ONE (07:58)
--- NOTE | 2020-12-01 12:24 | Electrocardiograph Report ---
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
== END 2020-12-01 07:56 | disposition home or self-care (01) ==
LOC: TRG 04:19 → APU 04:29 → TRG 07:56
PROVIDERS: ATTEND Obstetrics & Gynecology
DX: O26.893 Other specified pregnancy related conditions, third trimester (principal); R07.9 Chest pain, unspecified; R13.10 Dysphagia, unspecified; Z3A.29 29 weeks gestation of pregnancy; Z79.899 Other long term (current) drug therapy
CPT/HCPCS: 59025; 76815; 76819; 80307; 81001; 93005; 96372; J0696

== ENCOUNTER 2020-12-09 11:52 | Outpatient (CLI) | payer OTHER ==
[2020-12-09 12:14] VITALS: BP 92/61
[2020-12-09] MEDS ORDERED: FLUCONAZOLE 100 MG/10 ML ORAL SYRINGE PO ONE (13:00)
[2020-12-09 13:33] LABS: Bilirubin,Urine NEG (Negative); Blood,Urine NEG (Negative); Color,Urine Yellow (Yellow); Protein,Urine <15 mg/dL mg/dL (Negative); RBC,Urine < 1.0 /HPF (0.0-6.0); Urobilinogen,Urine < 2.0 mg/dL (<2.0)
[2020-12-09] MEDS ORDERED: LACTATED RINGERS 1,000 ML IV ONE (13:34)
[2020-12-09] MEDS ORDERED: FLUCONAZOLE 100 MG TAB PO ONE (14:00)
== END 2020-12-09 15:29 | disposition home or self-care (01) ==
LOC: TRG 11:52 → APU 11:53 → TRG 15:29
PROVIDERS: ATTEND Obstetrics & Gynecology
DX: Z34.93 Encounter for supervision of normal pregnancy, unspecified, third trimester (principal); Z3A.30 30 weeks gestation of pregnancy
CPT/HCPCS: 36415; 59025; 81001; 84112; 96360; 96361; J7120

== ENCOUNTER 2020-12-24 11:25 | Outpatient (CLI) | payer OTHER ==
[2020-12-24 12:18] VITALS: BP 97/57
[2020-12-24 12:52] LABS: Bacteria,Urine 1+ /HPF (Negative); Bilirubin,Urine NEG (Negative); Blood,Urine NEG (Negative); Color,Urine Yellow (Yellow); Mucus,Urine FEW /HPF; Protein,Urine <15 mg/dL mg/dL (Negative)
[2020-12-24] MEDS ORDERED: LACTATED RINGERS 1,000 ML IV ONE (13:00)
--- NOTE | 2020-12-24 14:47 | Ultrasound Report ---
ULTRASOUND BIOPHYSICAL PROFILE INDICATION / CLINICAL INFORMATION: well being. COMPARISON: None available. FINDINGS: BREATHING MOVEMENT = 2 GROSS BODY MOVEMENT = 2 TONE = 2 QUALITATIVE AMNIOTIC FLUID VOLUME = 2 TOTAL BIOPHYSICAL SCORE = 09/16 AMNIOTIC FLUID INDEX (cm) = 12.0 PRESENTATION: Cephalic. HEART RATE (beats per minute): 125 IMPRESSION: 1. biophysical profile = 09/16 Signer Name: Conrad Fowler MD Signed: 12/24/2020 2:42 PM Workstation Name: [id number]
== END 2020-12-24 15:15 | disposition home or self-care (01) ==
LOC: TRG 11:25 → APU 11:26 → TRG 15:15
PROVIDERS: ATTEND Obstetrics & Gynecology
DX: Z34.93 Encounter for supervision of normal pregnancy, unspecified, third trimester (principal); Z3A.33 33 weeks gestation of pregnancy
CPT/HCPCS: 59025; 76815; 76819; 81001

== ENCOUNTER 2021-01-01 23:10 | Outpatient (CLI) | payer OTHER ==
[2021-01-01 23:37] VITALS: BP 100/59
[2021-01-01] MEDS ORDERED: LACTATED RINGERS 1,000 ML IV ONE (23:47)
[2021-01-02 00:26] LABS: Bilirubin,Urine NEG (Negative); Blood,Urine NEG (Negative); Color,Urine Yellow (Yellow); Mucus,Urine FEW /HPF; Protein,Urine <15 mg/dL mg/dL (Negative)
--- NOTE | 2021-01-02 04:35 | Ultrasound Report ---
US OB limited, US OB BPP wo non-stress INDICATION / CLINICAL INFORMATION: JOSE G. COMPARISON: 12/24/2020. FINDINGS: BREATHING MOVEMENT = 2 GROSS BODY MOVEMENT = 2 TONE = 2 QUALITATIVE AMNIOTIC FLUID VOLUME = 2 TOTAL BIOPHYSICAL SCORE = 8/8 AMNIOTIC FLUID INDEX (cm) = 12.7 PRESENTATION: Cephalic. HEART RATE (beats per minute): 138 IMPRESSION: 1. biophysical profile = 09/16 2. Normal JOSE G measuring 12.7 cm. 3. No significant abnormality. Signer Name: Tyree Camarena MD Signed: 01/02/2021 4:30 AM Workstation Name: [id number]
== END 2021-01-02 04:00 | disposition home or self-care (01) ==
LOC: TRG 23:10 → APU 23:12 → TRG 01-02 04:00
PROVIDERS: ATTEND Obstetrics & Gynecology
DX: O26.893 Other specified pregnancy related conditions, third trimester (principal); R10.9 Unspecified abdominal pain; O42.92 Full-term premature rupture of membranes, unspecified as to length of time between rupture and onset of labor; Z3A.34 34 weeks gestation of pregnancy
CPT/HCPCS: 36415; 59025; 76815; 76819; 81001; 84112; 96360; J7120; J3490

== ENCOUNTER 2021-01-07 11:17 | Outpatient (CLI) | payer OTHER ==
[2021-01-07 12:09] VITALS: BP 95/53
[2021-01-07] MEDS ORDERED: LACTATED RINGERS 1,000 ML IV ONE (12:09)
[2021-01-07] MEDS ORDERED: BETAMET ACET/BETAMET NA PH 6 MG/ML INJ 5 ML MDV IM NR (13:00)
== END 2021-01-07 13:30 | disposition left against medical advice (07) ==
LOC: TRG 11:17
PROVIDERS: ATTEND Obstetrics & Gynecology
DX: Z34.93 Encounter for supervision of normal pregnancy, unspecified, third trimester (principal); Z3A.35 35 weeks gestation of pregnancy
CPT/HCPCS: 59025; 96372; J0702

== ENCOUNTER 2021-01-09 13:15 | Outpatient (CLI) | payer OTHER ==
[2021-01-09 13:47] VITALS: BP 94/55
[2021-01-09] MEDS ORDERED: LACTATED RINGERS 1,000 ML ONE (14:48)
[2021-01-09] MEDS ORDERED: LACTATED RINGERS 1,000 ML IV ONE (15:00)
[2021-01-09 16:01] LABS: Amorphous Crystals,Urine Few; Mucus,Urine FEW /HPF
[2021-01-09 16:02] LABS: Bilirubin,Urine NEG (Negative); Blood,Urine NEG (Negative); Color,Urine Yellow (Yellow); Protein,Urine <15 mg/dL mg/dL (Negative)
--- NOTE | 2021-01-09 19:22 | Ultrasound Report ---
ULTRASOUND OBSTETRIC LIMITED INDICATION / CLINICAL INFORMATION: QUESTIONABLE ROM - JOSE G. Clinical Gestational Age (GA) in weeks, days: 35, 2 TECHNIQUE: Transabdominal. COMPARISON: None available. FINDINGS: HEART RATE (beats per minute): 134 AMNIOTIC FLUID INDEX (cm) = 14.3 (normal = 7-24 cm) PRESENTATION: Cephalic. BREATHING MOVEMENT = 2 GROSS BODY MOVEMENT = 2 TONE = 2 QUALITATIVE AMNIOTIC FLUID VOLUME = 2 TOTAL BIOPHYSICAL SCORE = 8/8 ADDITIONAL FINDINGS: None. IMPRESSION: 1. No significant abnormality. Signer Name: Davis Patterson DO Signed: 01/09/2021 7:17 PM Workstation Name: [id number]
== END 2021-01-09 19:21 | disposition home or self-care (01) ==
LOC: TRG 13:15 → APU 13:17 → TRG 16:55
PROVIDERS: ATTEND Obstetrics & Gynecology
DX: Z34.93 Encounter for supervision of normal pregnancy, unspecified, third trimester (principal); Z3A.35 35 weeks gestation of pregnancy
CPT/HCPCS: 36415; 59025; 76815; 76819; 81001; 84112